=== PATIENT | male | born 1985 | race Caucasian/White ===

== ENCOUNTER 2017-08-11 14:50 | Outpatient (CLI) | payer BC | END 2017-08-11 14:51 | disposition home or self-care (01) | LOC: BICMRI 14:50 | PROVIDERS: ATTEND Family Medicine | DX: S49.91XA Unspecified injury of right shoulder and upper arm, initial encounter (principal); M25.511 Pain in right shoulder; M25.811 Other specified joint disorders, right shoulder | CPT/HCPCS: 72040 ==

== ENCOUNTER 2020-03-25 13:01 | Outpatient (CLI) | payer BC ==
--- NOTE | 2020-03-25 13:42 | ULT ---
Exam: Thyroid ultrasound HISTORY: Goiter COMPARISON: 04/20/2019 FINDINGS: Thyroid isthmus:0.56cm Right thyroid lobe: 1.8 x 5.2 x 2.2cm Left thyroid lobe: 1.6 x 5.3 x 2.1cm Thyroid nodules: Right thyroid lobe:No nodule Left thyroid lobe: No nodule IMPRESSION: 1. No acute sonographic abnormalities with regard to the thyroid gland. 2. TI-RADS level: 1. Negative exam.
== END 2020-03-25 13:02 | disposition home or self-care (01) ==
LOC: SCSULT 13:01
PROVIDERS: ATTEND Family Medicine
DX: E04.9 Nontoxic goiter, unspecified (principal)
CPT/HCPCS: 76536